=== PATIENT | female | born 1995 | race Caucasian/White ===

== ENCOUNTER 2017-07-08 21:52 | Emergency (ER) | END 2017-07-08 23:30 | disposition left against medical advice (07) ==

== ENCOUNTER 2018-12-10 09:04 | Day surgery (SDC) | payer BC ==
[2018-12-10] VITALS (9 sets, daily range): BP systolic 115–137; BP diastolic 61–80; PULSE 86–108; RESP 14–19; Ht 162.6 cm; Wt 105.2 kg
[~2018-12-10] VITALS: Ht 162.6 cm; Wt 105.2 kg
[~2018-12-10 09:04] MED LIST: LEVO100T8 PO
--- NOTE | 2018-12-10 09:12 | HPN ---
Date/Time of Note Date/Time of Note DATE: 12/10/18 TIME: 09:12 Interval H&P Admission Note Pt. seen H&P reviewed: No system changes SD NEELY MD Dec 10, 2018 09:12
--- NOTE | 2018-12-10 11:59 | PREAC ---
Date/Time of Note Date/Time of Note DATE: 12/10/18 TIME: 11:58 Anesthesia Eval and Record Evaluation Time Pre-Procedure Interview DATE: 12/10/18 TIME: 11:58 Age 23 Sex female NPO: 8 hrs Preoperative diagnosis thyroid nodule Planned procedure total thyroidectomy Past Medical History Past Medical History: Includes Endo: Hypothyroid GI: Obesity Surgery & Anesthesia Issues No known issue Meds Anticoagulation: No Beta Amanuel within 24 hr: No Reason Beta Amanuel not given: Pt. not on B-Amanuel Reported Medications Levothyroxine Sodium* (Levothyroxine Sodium*) 100 Mcg Tablet, 100 MCG PO BEFORE BREAKFAST, #30 TAB 12/10/18 Meds reviewed: Yes Allergies Coded Allergies: No Known Allergy (Unverified , 12/10/18) Allergies Reviewed: Yes Labs/Studies Labs Reviewed: Reviewed by anesthesiologist test: N/A Studies: ECG, CXR Pre-procedure Exam Last vitals Vital Signs Date Temp Pulse Resp B/P (MAP) Pulse Ox O2 O2 Flow FiO2 Time Delivery Rate 12/10/18 97.8 86 16 115/61 96 Room Air 10:25 (79) Airway: Adequate mouth opening, Adequate thyromental dist Mallampati: Mallampati II Teeth: Normal Lung: Normal Heart: Normal ASA Physical Status ASA physical status: 2 Emergency: None Planned Anesthetic General/MAC: ETT Planned Pain Management Parenteral pain med Pre-operative Attestations Prior to commencing anesthesia and surgery, the patient was re-evaluated, there was verification of: *The patient's identity *The results of appropriate recent lab work and preoperative vital signs *The above evaluation not changing prior to induction *Anesthetic plan, risk benefits, alternative and complications discussed with patient/family; questions answered; patient/family understands, accepts and wishes to proceed. RAFIQ COX Dec 10, 2018 11:59
[2018-12-10] MEDS ORDERED: LIDOCAINE 1%/EPI 30 ML INJ ONE (12:05)
[2018-12-10] MEDS ORDERED: PROPOFOL 100 ML ONE (12:17)
[2018-12-10] MEDS ORDERED: CEFAZOLIN 1 GM INJ ONE (12:28)
[2018-12-10] MEDS ORDERED: LIDOCAINE 2% (SDV) 5 ML INJ ONE (12:28)
[2018-12-10] MEDS ORDERED: DEXAMETHASONE 4 MG/ML 5 ML INJ ONE (12:28)
[2018-12-10] MEDS ORDERED: SUCCINYLCHOLINE CHLORIDE 100 MG/5 ML SYG IV ONE (12:28)
[2018-12-10] MEDS ORDERED: ONDANSETRON 4 MG INJ ONE (12:28)
[2018-12-10] MEDS ORDERED: morphine 10 MG INJ ONE (12:31)
[2018-12-10] MEDS ORDERED: THROMBIN 5000 UNIT (RECOTHROM) VIAL ONE (14:47)
[2018-12-10] MEDS ORDERED: PROPOFOL 200 ML ONE (14:56)
[2018-12-10] MEDS ORDERED: LABETALOL HCL 20MG INJ IV PRN (15:00)
[2018-12-10] MEDS ORDERED: hydrALAzine 20 MG INJ IV PRN (15:00)
[2018-12-10] MEDS ORDERED: EPHEDrine 25 MG/5 ML SYG IV PRN (15:00)
[2018-12-10] MEDS ORDERED: MIDAZOLAM 1 MG/ML 2 ML INJ IV PRN (15:00)
[2018-12-10] MEDS ORDERED: FENTAnyl 50 MCG/ML VIAL IV PRN ×3 (15:00)
[2018-12-10] MEDS ORDERED: DIPHENHYDRAMINE 50 MG INJ IV PRN (15:00)
[2018-12-10] MEDS ORDERED: ALBUTEROL 0.083% (NEB) 2.5 MG/3 ML AMP HHN PRN (15:00)
[2018-12-10] MEDS ORDERED: HYDROmorphONE 1 MG/5 ML IV SYRINGE IV PRN ×3 (15:00)
[2018-12-10] MEDS ORDERED: ONDANSETRON 4 MG INJ IV PRN (15:00)
[2018-12-10] MEDS ORDERED: OXYCODONE/ACETAMINOPHEN (5/325) TAB PO PRN ×2 (15:00)
[2018-12-10] MEDS ORDERED: MEPERIDINE 25 MG INJ IV PRN (15:00)
[2018-12-10] MEDS ORDERED: METOCLOPRAMIDE 10 MG INJ IV PRN (15:00)
--- NOTE | 2018-12-10 15:10 | SIPON ---
Date/Time of Note Date/Time of Note DATE: 12/10/18 TIME: 15:09 Operative Report Preoperative Diagnosis Papillary thyroid cancer Postoperative Diagnosis Same Operation/Procedure Performed Total thyroidectomy with central neck dissection Surgeon see signature line assistant corporation counsel Dr. Bob Hough Anesthesia: general Estimated blood loss: minimal Transfusion Required none Specimen Total thyroid, central neck dissection Grafts/Implants none Complications none SD NEELY MD Dec 10, 2018 15:10
--- NOTE | 2018-12-10 15:18 | OPR ---
Date/Time of Note Date/Time of Note DATE: 12/10/18 TIME: 15:11 Operative Report Procedure Date: Dec 10, 2018 Preoperative Diagnosis Papillary thyroid carcinoma Postoperative Diagnosis Same Operation/Procedure Performed Total thyroidectomy with central neck dissection Surgeon see signature line Personal Clothing Laundry Aide Dr. Bob Hough Anesthesia Type: general Estimated Blood Loss: minimal Transfusion none Specimen Total thyroid, central neck dissection Grafts/Implants none Complications none Pt Condition Post Procedure: stable Disposition: PACU Indications The patient is a 23-year-old female with a fine-needle biopsy aspiration of a left thyroid nodule that was positive for papillary thyroid carcinoma. She presents for total thyroidectomy with central neck dissection. The risks, benefits and alternatives surgery were discussed with the patient the risks included but not limited to bleeding, infection, scar, need for further surgery, recurrence of cancer, injury to the recurrent laryngeal nerve, permanent hoarseness, pain and need for lifelong hormone replacement. She understood these and signed consent. Procedure Description After informed consent was obtained, the patient was brought back to the operating room suite. She was intubated with an EMG monitoring tube and sedated. Shoulder roll was placed. A 4 cm incision was marked in a relaxed skin tension line just below the cricoid cartilage. The area was prepped and draped in usual sterile fashion. 15 blade was used to make the incision down to the strap muscles. Strap muscles were divided in the midline. The right strap muscles were retracted laterally and the thyroid gland was visualized. The superior pole was retracted inferiorly and the superior pole vessels were dissected out and ligated with the harmonic scalpel. I then moved inferiorly and ligated the middle pole vessels followed by the inferior pole vessels. I then rotated the gland medially, identified the inferior parathyroid gland and preserved with its blood supply intact. I then identified the recurrent laryngeal nerve and followed up towards the larynx. By following the nerve towards the larynx I was able to identify the superior parathyroid gland and preserved with its blood supply intact. I then ligated the remaining thyroid attachments at Stoll's ligament. I then turned my attention to the left side. A large nodule was encountered in the mid part of the gland. There was no obvious muscular invasion. The superior pole was dissected free and ligated with harmonic scalpel followed by the middle pole and inferior pole vessels. I then rotated the gland medially and identified the inferior parathyroid gland and preserved with its blood supply intact. I then identified the recurrent laryngeal nerve and followed up towards the larynx. I identified the superior parathyroid gland and preserved with its blood supply intact. The remaining thyroid attachments at Stoll's ligament were then ligated. The gland was then sent for permanent evaluation by pathology. I then followed the left recurrent regional nerve down towards the chest and removed all the lymphoid tissue from this region. The area was then irrigated profusely with saline. Surgicel was placed in the wound bed followed by Surgi-Troy. The wound was then closed in multiple layers. 3-0 chromic suture was used to close the strap muscles platysma deep dermis and a 5-0 Monocryl was used to close the skin in sub cuticular fashion. Mastisol, Steri-Strips, Telfa and Tegaderm placed on the incision. The patient was extubated by anesthesia and brought to the recovery room in stable condition. SD NEELY MD Dec 10, 2018 15:18
--- NOTE | 2018-12-10 15:23 | PAC ---
Date/Time of Note Date/Time of Note DATE: 12/10/18 TIME: 15:22 Post-Anesthesia Notes Post-Anesthesia Note Last documented vital signs Vital Signs Date Temp Pulse Resp B/P (MAP) Pulse Ox O2 O2 Flow FiO2 Time Delivery Rate 12/10/18 97.8 86 16 115/61 96 Room Air 1523 (79) Activity: WNL Respiratory function: WNL Cardiovascular function: WNL Mental status: Baseline Pain reasonably controlled: Yes Hydration appropriate: Yes Nausea/Vomiting absent: Yes RAFIQ COX Dec 10, 2018 15:23
== END 2018-12-10 18:25 | disposition home or self-care (01) ==
LOC: SDS 09:04
PROVIDERS: ATTEND Otolaryngology
DX: C73 Malignant neoplasm of thyroid gland (principal); C77.0 Secondary and unspecified malignant neoplasm of lymph nodes of head, face and neck
CPT/HCPCS: 60252; 88307; J0690; J1100; J2175; J2270; J2405; J3010; Z7512; Z7610